=== PATIENT | female | born 1985 | race Caucasian/White ===

== ENCOUNTER 2017-03-26 12:26 | Emergency (ER) | payer MEDICAID ==
[~2017-03-26] VITALS: Ht 167.6 cm; Wt 125.3 kg
[~2017-03-26 12:26] MED LIST: LITH300T30 PO
[2017-03-26 12:28] VITALS: BP 136/92
[2017-03-26] MEDS ORDERED: HYDROcodone/APAP 5/325 TABLET ONE (12:55)
[2017-03-26] MEDS ORDERED: DIAZEPAM 5 MG TABLET ONE ×2 (12:55→15:37)
[2017-03-26] MEDS ORDERED: KETOROLAC 30 MG/1 ML ONE (12:56)
[2017-03-26] MEDS ORDERED: KETOROLAC 30 MG/1 ML IM ONE (13:00)
[2017-03-26] MEDS ORDERED: DIAZEPAM 5 MG TABLET PO ONE ×2 (13:00→15:30)
[2017-03-26] MEDS ORDERED: HYDROcodone/APAP 5/325 TABLET PO ONE (13:00)
[2017-03-26] MEDS ORDERED: HYDROcodone/APAP 10/325 MG TABLET ONE (14:04)
[2017-03-26] MEDS ORDERED: HYDROcodone/APAP 10/325 MG TABLET PO ONE (14:30)
== END 2017-03-26 16:53 | disposition home or self-care (01) ==
LOC: ED 14:31
DX: M54.10 Radiculopathy, site unspecified (principal); S39.012A Strain of muscle, fascia and tendon of lower back, initial encounter; X58.XXXA Exposure to other specified factors, initial encounter; Y93.89 Activity, other specified; Y99.8 Other external cause status; Y92.89 Other specified places as the place of occurrence of the external cause
CPT/HCPCS: 72110; 96372; 99284; J1885; J7512

== ENCOUNTER 2017-04-20 09:47 | Emergency (ER) | payer MEDICAID ==
[~2017-04-20] VITALS: Ht 167.6 cm; Wt 124.1 kg
[2017-04-20 09:49] VITALS: BP 150/87
[2017-04-20] MEDS ORDERED: OXYcodone/APAP 5/325MG TABLET PO ONE (10:00)
[2017-04-20] MEDS ORDERED: IBUPROFEN 200 MG TABLET PO ONE (10:00)
[2017-04-20] MEDS ORDERED: DIAZEPAM 5 MG TABLET PO ONE (10:00)
[2017-04-20] MEDS ORDERED: IBUPROFEN 200 MG TABLET ONE (10:18)
[2017-04-20] MEDS ORDERED: OXYcodone/APAP 5/325MG TABLET ONE (10:18)
[2017-04-20] MEDS ORDERED: DIAZEPAM 5 MG TABLET ONE (10:18)
== END 2017-04-20 11:28 | disposition home or self-care (01) ==
LOC: ED 10:11
DX: S39.012A Strain of muscle, fascia and tendon of lower back, initial encounter (principal); F43.10 Post-traumatic stress disorder, unspecified; F42.9 Obsessive-compulsive disorder, unspecified; F31.9 Bipolar disorder, unspecified; Z90.49 Acquired absence of other specified parts of digestive tract; X58.XXXA Exposure to other specified factors, initial encounter; Y93.89 Activity, other specified; Y92.89 Other specified places as the place of occurrence of the external cause; Y99.8 Other external cause status
CPT/HCPCS: 99284

== ENCOUNTER 2017-06-26 11:17 | Emergency (ER) | payer MEDICAID ==
[~2017-06-26] VITALS: Ht 167.6 cm; Wt 122.2 kg
[2017-06-26 12:15] LABS: HEMATOCRIT 40.4 % (34.6-47.8); HEMOGLOBIN 12.9 g/dL (11.7-16.4); WHITE BLOOD COUNT 8.3 x10^3/uL (3.4-10)
[2017-06-26 12:16] LABS: HCG UR LOT HCG7030192
[2017-06-26] MEDS ORDERED: OXYcodone/APAP 5/325MG TABLET ONE (12:25)
[2017-06-26 12:28] LABS: BLOOD UREA NITROGEN 10 mg/dL (7-18)
[2017-06-26] MEDS ORDERED: OXYcodone/APAP 5/325MG TABLET PO ONE (12:30)
[2017-06-26 12:38] LABS: HCG UR OBC PASS
[2017-06-26 13:25] VITALS: BP 122/71
== END 2017-06-26 12:19 ==
LOC: ED 12:13
DX: R10.2 Pelvic and perineal pain (principal); N94.6 Dysmenorrhea, unspecified; Z90.49 Acquired absence of other specified parts of digestive tract
CPT/HCPCS: 36415; 76830; 80048; 81003; 81025; 82040; 85025; 85610; 99285

== ENCOUNTER 2017-11-25 16:37 | Emergency (ER) | payer MEDICAID ==
[~2017-11-25] VITALS: Ht 167.6 cm; Wt 124.8 kg
[2017-11-25] MEDS ORDERED: SODIUM CHLORIDE 0.9% 1,000 ML IV ONE (17:53)
[2017-11-25] MEDS ORDERED: SODIUM CHLORIDE FLUSH 10ML SYR IVF ONE (18:00)
[2017-11-25] MEDS ORDERED: KETOROLAC 30 MG/1 ML IVPush ONE (18:00)
[2017-11-25] MEDS ORDERED: SODIUM CHLORIDE 0.9% 1,000ML IVBOLUS ONE (18:00)
[2017-11-25] MEDS ORDERED: ONDANSETRON 2MG/ML, 2ML IVPush ONE (18:00)
[2017-11-25] MEDS ORDERED: KETOROLAC 30 MG/1 ML ONE ×2 (18:13→18:29)
[2017-11-25] MEDS ORDERED: ONDANSETRON 2MG/ML, 2ML ONE (18:13)
[2017-11-25 18:17] LABS: BASOPHILS # (AUTO) 0.04 x10^3/uL (0-0.1); BASOPHILS % (AUTO) 1 % (0-1); EOSINOPHILS # (AUTO) 0.58 x10^3/uL (0-0.4); EOSINOPHILS % (AUTO) 6 % (1-7); LYMPHOCYTES # (AUTO) 1.98 x10^3/uL (1-3.4); LYMPHOCYTES % (AUTO) 20 % (22-44); MD NO; MEAN CORPUSCULAR HEMOGLOBIN 24.5 pg (27.0-34.8); MEAN CORPUSCULAR HGB CONC 32.4 g/dL (32.4-35.8); MEAN CORPUSCULAR VOLUME 75.7 fL (80-100); MEAN PLATELET VOLUME 8.3 fL (7.4-10.4); MONOCYTES # (AUTO) 0.56 x10^3/uL (0.2-0.8); MONOCYTES % (AUTO) 6 % (2-9); NEUTROPHILS # (AUTO) 6.75 x10^3/uL (1.8-6.8); NEUTROPHILS % (AUTO) 68 % (42-75); PLATELET COUNT 402 x10^3/uL (130-400); RED BLOOD COUNT 5.43 x10^6/uL (3.82-5.3); RED CELL DISTRIBUTION WIDTH 16.3 % (9.6-15.2)
[2017-11-25 18:17] LABS: CULTURE INDICATED? YES; MICROSCOPIC INDICATED
[2017-11-25 18:21] LABS: ALANINE AMINOTRANSFERASE 22 U/L (12-78); ALBUMIN 3.9 g/dL (3.4-5.0); ANION GAP 7 mmol/L (5-15); CALCIUM 9.2 mg/dL (8.5-10.1); CHLORIDE 105 mmol/L (98-107); CREATININE 0.87 mg/dL (0.55-1.02)
[2017-11-25 18:25] LABS: ALKALINE PHOSPHATASE 88 U/L (45-117); BILIRUBIN,TOTAL 0.4 mg/dL (0.2-1.0); TOTAL PROTEIN 7.6 g/dL (6.4-8.2)
[2017-11-25] MEDS ORDERED: ONDANSETRON ODT 4 MG ONE (18:29)
[2017-11-25] MEDS ORDERED: ONDANSETRON ODT 4 MG PO ONE (18:30)
[2017-11-25] MEDS ORDERED: KETOROLAC 30 MG/1 ML IM ONE (18:30)
[2017-11-25 19:07] VITALS: BP 158/97
== END 2017-11-25 19:09 | disposition home or self-care (01) ==
LOC: ED 18:24
DX: N30.90 Cystitis, unspecified without hematuria (principal); F43.10 Post-traumatic stress disorder, unspecified; F42.9 Obsessive-compulsive disorder, unspecified; F31.9 Bipolar disorder, unspecified; Z90.49 Acquired absence of other specified parts of digestive tract; D25.9 Leiomyoma of uterus, unspecified
CPT/HCPCS: 36415; 76830; 80053; 81001; 84703; 85025; 87086; 96372; 99285; J1885; Q0162

== ENCOUNTER 2018-12-18 18:51 | Emergency (ER) | payer MEDICAID ==
[~2018-12-18] VITALS: Ht 167.6 cm; Wt 129.1 kg
[2018-12-18 18:55] VITALS: BP 162/127
[2018-12-18 19:15] LABS: BASOPHILS # (AUTO) 0.05 x10^3/uL (0-0.1); BASOPHILS % (AUTO) 1 % (0-1); EOSINOPHILS # (AUTO) 0.28 x10^3/uL (0-0.4); EOSINOPHILS % (AUTO) 3 % (1-7); LYMPHOCYTES # (AUTO) 2.08 x10^3/uL (1-3.4); LYMPHOCYTES % (AUTO) 23 % (22-44); MD NO; MEAN CORPUSCULAR HEMOGLOBIN 28.2 pg (27.0-34.8); MEAN CORPUSCULAR HGB CONC 33.2 g/dL (32.4-35.8); MEAN CORPUSCULAR VOLUME 84.8 fL (80-100); MEAN PLATELET VOLUME 8.7 fL (7.4-10.4); MONOCYTES # (AUTO) 0.52 x10^3/uL (0.2-0.8); MONOCYTES % (AUTO) 6 % (2-9); NEUTROPHILS # (AUTO) 6.08 x10^3/uL (1.8-6.8); NEUTROPHILS % (AUTO) 68 % (42-75); PLATELET COUNT 307 x10^3/uL (130-400); RED BLOOD COUNT 6.21 x10^6/uL (3.82-5.3); RED CELL DISTRIBUTION WIDTH 16.1 % (9.6-15.2)
[2018-12-18 19:26] LABS: ALANINE AMINOTRANSFERASE 40 U/L (12-78); ALBUMIN 4.7 g/dL (3.4-5.0); ANION GAP 9 mmol/L (5-15); CALCIUM 9.6 mg/dL (8.5-10.1); CHLORIDE 111 mmol/L (98-107)
[2018-12-18 19:30] LABS: ALKALINE PHOSPHATASE 99 U/L (45-117); BILIRUBIN,TOTAL 0.5 mg/dL (0.2-1.0); TOTAL PROTEIN 8.6 g/dL (6.4-8.2)
[2018-12-18] MEDS ORDERED: MORPHINE SULFATE 4 MG/ML, 1ML IVPush PRN (19:30)
[2018-12-18] MEDS ORDERED: KETOROLAC 30 MG/1 ML IVPush ONE (20:00)
[2018-12-18] MEDS ORDERED: ONDANSETRON 2MG/ML, 2ML IVPush ONE (20:00)
[2018-12-18] MEDS ORDERED: ONDANSETRON 2MG/ML, 2ML ONE (20:03)
[2018-12-18] MEDS ORDERED: MORPHINE SULFATE 4 MG/ML, 1ML ONE (20:03)
[2018-12-18] MEDS ORDERED: KETOROLAC 30 MG/1 ML ONE (20:03)
[2018-12-18 20:26] LABS: MICROSCOPIC NOT IND
[2018-12-18 20:29] LABS: CULTURE INDICATED? NO
--- NOTE | 2018-12-18 20:53 | NUR ---
pt up to bathroom. ambulates with a steady gait. pt states pain returns every time she has to urinate. made aware of this.
[2018-12-18] MEDS ORDERED: SODIUM CHLORIDE FLUSH 10ML SYR IVF ONE (21:00)
== END 2018-12-18 21:26 | disposition home or self-care (01) ==
LOC: ED 20:22
DX: R10.11 Right upper quadrant pain (principal); R10.31 Right lower quadrant pain; F31.9 Bipolar disorder, unspecified; Z90.49 Acquired absence of other specified parts of digestive tract; F43.10 Post-traumatic stress disorder, unspecified; F42.9 Obsessive-compulsive disorder, unspecified
CPT/HCPCS: 36415; 74176; 80053; 81003; 84703; 85025; 96374; 96375; 99284; J1885; J2405

== ENCOUNTER 2019-04-23 21:40 | Emergency (ER) | payer MEDICAID ==
[~2019-04-23] VITALS: Ht 167.6 cm; Wt 123.5 kg
[2019-04-23 21:43] VITALS: BP 163/120
== END 2019-04-23 22:42 | disposition home or self-care (01) ==
LOC: ED 22:40
DX: J06.9 Acute upper respiratory infection, unspecified (principal); H10.023 Other mucopurulent conjunctivitis, bilateral; J44.9 Chronic obstructive pulmonary disease, unspecified; F31.9 Bipolar disorder, unspecified; F43.10 Post-traumatic stress disorder, unspecified; Z90.49 Acquired absence of other specified parts of digestive tract; Z98.51 Tubal ligation status; Z98.890 Other specified postprocedural states
CPT/HCPCS: 99283

== ENCOUNTER 2020-03-19 16:00 | Outpatient (CLI) | payer MEDICAID | END 2020-03-19 23:59 | disposition home or self-care (01) | LOC: RAD 16:00 | PROVIDERS: ATTEND Family Medicine | DX: Z02.9 Encounter for administrative examinations, unspecified (principal) ==